=== PATIENT | female | born 1975 | race African-American/Black ===

== ENCOUNTER 2020-06-03 20:23 | Emergency (ER) | payer OTHER ==
[~2020-06-03] VITALS: Ht 167.6 cm; Wt 116.3 kg
--- NOTE | 2020-06-03 20:35 | NUR ---
INITIAL PT CONTACT. PT PRESENTS TO ED C/O INTERMITTENT PALPITATIONS FOR 2 DAYS. DENIES ANY CHEST PAIN. PT STATES "I DON'T KNOW, IT COULD BE FROM MY SECOND COVID VACCINATION I HAD 5 DAYS AGO." PT STATES SHE WAS SEEN AT URGENT CARE EARLIER AND "SENT HERE FOR ABNORMAL EKG". PT REPORTS SLIGHT LIGHT HEADEDNESS ASSOCIATED WITH PALPITATIONS, MOT PRESENT CURRENTLY. PT PLACED ON CONTINUOUS PULSE OX AND CARDIAC MONITORING. CALL LIGHT IN REACH. SPOUSE AT BEDSIDE. PT DENIES ANY NEEDS AT THIS TIME. AWAITING ERP.
[2020-06-03 22:02] VITALS: BP 135/81
[2020-06-03 22:04] LABS: BASOPHILS % (AUTO) 0 % (0-1); EOSINOPHILS % (AUTO) 1 % (1-7); LYMPHOCYTES % (AUTO) 40 % (22-44); MD NO; MEAN CORPUSCULAR HEMOGLOBIN 26.2 pg (27.0-34.8); MEAN CORPUSCULAR HGB CONC 32.4 g/dL (32.4-35.8); MEAN PLATELET VOLUME 8.5 fL (7.4-10.4); MONOCYTES % (AUTO) 8 % (2-9); NEUTROPHILS % (AUTO) 50 % (42-75); PLATELET COUNT 312 x10^3/uL (130-400); RED BLOOD COUNT 4.52 x10^6/uL (3.82-5.3)
--- NOTE | 2020-06-03 22:05 | NUR ---
ORTHOSTATIC VITALS COMPLETED PER ERP REQUEST. PT DENIES ANY DIZZINESS AT THIS TIME. PT RETURNED TO [facility]. PT DENIES ANY NEEDS AT THIS TIME. CALL LIGHT AND PERSONAL BELONGINGS WITHIN REACH. SPOUSE AT BEDSIDE.
[2020-06-03 22:14] LABS: ALBUMIN 3.4 g/dL (3.4-5.0); ANION GAP 8 mmol/L (5-15); CALCIUM 8.8 mg/dL (8.5-10.1); CHLORIDE 107 mmol/L (98-107)
[2020-06-03 22:27] LABS: ALANINE AMINOTRANSFERASE 25 U/L (12-78); ALKALINE PHOSPHATASE 64 U/L (45-117); BILIRUBIN,TOTAL 0.3 mg/dL (0.2-1.0); CREATININE 0.72 mg/dL (0.55-1.02); TOTAL PROTEIN 8.3 g/dL (6.4-8.2); TROPONIN I < 0.015 ng/mL (0.000-0.045)
== END 2020-06-03 23:24 | disposition home or self-care (01) ==
LOC: ED 23:01
DX: R07.89 Other chest pain (principal); R00.2 Palpitations
CPT/HCPCS: 36415; 71045; 80053; 83735; 84443; 84484; 84703; 85025; 93005; 99285

== ENCOUNTER 2020-11-03 17:47 | Inpatient (IN) | payer OTHER ==
[~2020-11-03] VITALS: Ht 167.6 cm; Wt 106.4 kg
[2020-11-03 18:13] LABS: MICROSCOPIC INDICATED
--- NOTE | 2020-11-03 19:44 | NUR ---
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 pt states she went into urgent care and they diagnosed her with food poisoning. pt states she is still have n/v/d at this time and feeling worse. pt reports they gave her a medication at the other facility but is unsure exactly what. Pt also states her upper abdomen/epigastric area is painful. pt appears uncomfortable and is crying in the room. pt resting on gurney, at , placed on spo2/bp monitoring. bed in lowest, rails engaged, call light on lap, wctm.
[2020-11-03] MEDS ORDERED: ONDANSETRON 2MG/ML, 2ML ONE (20:16)
[2020-11-03] MEDS ORDERED: HYDROmorphone 1 MG/ML, 1ML INJ ONE (20:16)
[2020-11-03 20:18] LABS: BASOPHILS % (AUTO) 1 % (0-1); EOSINOPHILS % (AUTO) 1 % (1-7); LYMPHOCYTES % (AUTO) 34 % (22-44); MEAN CORPUSCULAR HEMOGLOBIN 26.1 pg (27.0-34.8); MEAN CORPUSCULAR HGB CONC 32.4 g/dL (32.4-35.8); MEAN PLATELET VOLUME 8.5 fL (7.4-10.4); MONOCYTES % (AUTO) 7 % (2-9); NEUTROPHILS % (AUTO) 57 % (42-75); PLATELET COUNT 302 x10^3/uL (130-400); RED BLOOD COUNT 5.01 x10^6/uL (3.82-5.3); RED CELL DISTRIBUTION WIDTH 16.4 % (9.6-15.2)
[2020-11-03] MEDS ORDERED: ONDANSETRON 2MG/ML, 2ML IVPush ONE (20:30)
[2020-11-03] MEDS ORDERED: HYDROmorphone 1 MG/ML, 1ML INJ IV ONE (20:30)
[2020-11-03] MEDS ORDERED: SODIUM CHLORIDE FLUSH 10ML SYR IVF ONE (20:30)
[2020-11-03 20:31] LABS: ALANINE AMINOTRANSFERASE 805 U/L (12-78); ANION GAP 8 mmol/L (5-15); CALCIUM 8.8 mg/dL (8.5-10.1); CHLORIDE 106 mmol/L (98-107)
[2020-11-03 20:33] LABS: ALKALINE PHOSPHATASE 204 U/L (45-117); TOTAL PROTEIN 8.3 g/dL (6.4-8.2)
--- NOTE | 2020-11-03 21:04 | NUR ---
PT MEDICATED PER MAR FOR PAIN, REPORTS PAIN IS NOW DECREASED AND SHE IS SIGNIFICANTLY MORE COMFORTABLE, AT BS, US COMPLETED, NO OTHER CHANGES IN CONDITION, AWAITING US READ, WCTM.
--- NOTE | 2020-11-03 21:58 | NUR ---
Patient is resting comfortably in bed. Bed in lowest, rails engaged, call light on lap. Vital Signs within normal limits. DENIES ADDITIONAL NEEDS AT THIS TIME. REPORTS PAIN IS CONTROLLED AT THIS TIME. TM.
[2020-11-03] MEDS ORDERED: SODIUM CHLORIDE 0.9% 1,000 ML IV ONE (22:30)
[2020-11-03] MEDS ORDERED: SODIUM CHLORIDE FLUSH 10ML SYR IVF PRN (22:30)
[2020-11-03] MEDS ORDERED: OMEP-110 PO (22:32)
--- NOTE | 2020-11-03 22:49 | NUR ---
PT MEDICATED PER JUL, COVID SWAB WALKED TO LAB, NAD, RESTING ON GURNEY, APPEARS COMFORTABLE, SO AT BS, NO CHANGE IN CONDITION, WCTM. WAITING FOR ADMIT BED.
[2020-11-03 23:16] VITALS: BP 105/72
[2020-11-03] MEDS ORDERED: ONDANSETRON 2MG/ML, 2ML IVPush PRN (23:30)
[2020-11-03] MEDS ORDERED: BISACODYL 10 MG SUPP PR PRN (23:30)
[2020-11-04] MEDS: SODIUM CHLORIDE 0.9% 1,000 ML IV SCH ×3 (00:03→21:03)
[2020-11-04] MEDS: morphine SULFATE 10 MG/ML, 1ML IVPush PRN ×2 (00:12→03:07)
[2020-11-04 00:16] VITALS: BP 113/73
[2020-11-04 05:54] LABS: BASOPHILS % (AUTO) 1 % (0-1); EOSINOPHILS % (AUTO) 2 % (1-7); LYMPHOCYTES % (AUTO) 48 % (22-44); MEAN CORPUSCULAR HEMOGLOBIN 26.4 pg (27.0-34.8); MEAN CORPUSCULAR HGB CONC 32.6 g/dL (32.4-35.8); MONOCYTES % (AUTO) 7 % (2-9); NEUTROPHILS % (AUTO) 43 % (42-75); PLATELET COUNT 280 x10^3/uL (130-400); RED BLOOD COUNT 4.74 x10^6/uL (3.82-5.3); RED CELL DISTRIBUTION WIDTH 15.9 % (9.6-15.2)
[2020-11-04 05:58] LABS: ALBUMIN 2.7 g/dL (3.4-5.0); ANION GAP 7 mmol/L (5-15); CALCIUM 8.3 mg/dL (8.5-10.1); CHLORIDE 109 mmol/L (98-107)
[2020-11-04 06:02] LABS: ALANINE AMINOTRANSFERASE 657 U/L (12-78); ALKALINE PHOSPHATASE 189 U/L (45-117); BILIRUBIN,TOTAL 1.1 mg/dL (0.2-1.0); CREATININE 0.47 mg/dL (0.55-1.02); TOTAL PROTEIN 7.1 g/dL (6.4-8.2)
[2020-11-04 06:59] VITALS: BP 113/74
[2020-11-04 13:20] VITALS: BP 108/71
[2020-11-04] MEDS ORDERED: HYDROcodone/APAP 5/325 TABLET PO PRN (15:30)
[2020-11-04 18:51] VITALS: BP 110/67
[2020-11-05 01:47] VITALS: BP 116/79
[2020-11-05 04:35] LABS: BASOPHILS % (AUTO) 1 % (0-1); EOSINOPHILS % (AUTO) 1 % (1-7); LYMPHOCYTES % (AUTO) 40 % (22-44); MEAN CORPUSCULAR HEMOGLOBIN 26.4 pg (27.0-34.8); MEAN CORPUSCULAR HGB CONC 32.6 g/dL (32.4-35.8); MEAN PLATELET VOLUME 8.7 fL (7.4-10.4); MONOCYTES % (AUTO) 6 % (2-9); NEUTROPHILS % (AUTO) 53 % (42-75); PLATELET COUNT 295 x10^3/uL (130-400); RED BLOOD COUNT 4.75 x10^6/uL (3.82-5.3); RED CELL DISTRIBUTION WIDTH 16.1 % (9.6-15.2)
[2020-11-05 04:44] LABS: ALANINE AMINOTRANSFERASE 467 U/L (12-78); ALBUMIN 2.8 g/dL (3.4-5.0); ANION GAP 8 mmol/L (5-15); CALCIUM 8.1 mg/dL (8.5-10.1); CHLORIDE 110 mmol/L (98-107); CREATININE 0.56 mg/dL (0.55-1.02)
[2020-11-05 04:47] LABS: ALKALINE PHOSPHATASE 172 U/L (45-117); BILIRUBIN,TOTAL 0.5 mg/dL (0.2-1.0); TOTAL PROTEIN 7.5 g/dL (6.4-8.2)
[2020-11-05] MEDS: SODIUM CHLORIDE 0.9% 1,000 ML IV SCH (07:00)
[2020-11-05 07:46] VITALS: BP 127/82
== END 2020-11-05 12:45 | disposition home or self-care (01) | DRG 445 ==
LOC: ED 21:34 → EDIP 22:14 → 3N 23:12
PROVIDERS: ADMIT Family Medicine; ATTEND Family Medicine
DX: K80.00 Calculus of gallbladder with acute cholecystitis without obstruction (principal); B16.9 Acute hepatitis B without delta-agent and without hepatic coma; Z20.822 Contact with and (suspected) exposure to COVID-19; J45.909 Unspecified asthma, uncomplicated; K76.0 Fatty (change of) liver, not elsewhere classified; Z83.3 Family history of diabetes mellitus; E66.9 Obesity, unspecified; Z71.3 Dietary counseling and surveillance; Z68.39 Body mass index [BMI] 39.0-39.9, adult
CPT/HCPCS: 36415; 76700; 80053; 80074; 81001; 82390; 82728; 82787; 83516; 83540; 83550; 83690; 83735; 84100; 84702; 85025; 86376; 86704; 86706; 86707; 87340; 87350; 87517; 87522; 87635; 96374; 96375; G0378; J1170; J2405; J2270; J7030